=== PATIENT | male | born 1955 | race Caucasian/White ===

== ENCOUNTER 2019-11-24 08:23 | Outpatient (CLI) | payer MEDICARE ==
--- NOTE | 2019-11-24 09:53 | ULT ---
ULTRASOUND RENAL BILATERAL: HISTORY: Renal stone. COMPARISON: CT 10/08/2019. FINDINGS: Real-time, giron scale, and color evaluation of the kidneys and urinary bladder was performed. The prevoid urinary bladder volume is 432 mL and the postvoid volume is 87 mL. The right kidney fady ures 10.5 x 5.4 x 4.9 cm without mass, hydronephrosis, or abnormal calcifications. The left kidney m easures 10.2 x 5.7 x 4.7 cm without mass, hydronephrosis, or abnormal calcifications. There is an 8 mm cyst in the inferior pole left kidney, a parapelvic cyst. IMPRESSION: 1. No residual right-sided hydronephrosis. No evidence for obstructive uropathy. 2. Increased postvoid residual of 87 mL. POS: [facility]
== END 2019-11-24 08:24 | disposition home or self-care (01) ==
LOC: MADULT 08:23
PROVIDERS: ATTEND Urology
DX: N20.1 Calculus of ureter (principal); N13.30 Unspecified hydronephrosis
CPT/HCPCS: 76770

== ENCOUNTER 2020-12-27 14:28 | Emergency (ER) | payer MEDICARE ==
[2020-12-27] MEDS ORDERED: Aspirin Chewable 81 MG TAB ONE (14:58)
[2020-12-27] MEDS ORDERED: Nitroglycerin 0.4 MG TAB 1 EACH ONE ×2 (14:58→15:22)
[2020-12-27 15:10] LABS: #Basophils 0.2 thou/uL (0.0-0.2); #Eosinphils 0.3 thou/uL (0.0-0.7); #Lymphocytes 1.5 thou/uL (1.20-3.40); #Monocytes 0.8 thou/uL (0.11-0.59); #Neutrophils 7.9 thou/uL (1.40-6.50); %Basophils 1.7 % (0.0-1.0); %Eosinophils 2.5 % (0.0-10.0); %Lymphocytes 14.3 % (21.0-51.0); %Monocytes 7.4 % (0.0-10.0); %Neutrophils 74.1 % (42.0-75.0); Hemoglobin 14.5 g/dL (14.0-18.0); Mean Corpuscular HGB CONC 34.8 g/dL (32.0-36.0); Mean Platelet Volume 6.4 fL (7.4-10.4); Platelet Count 279 thou/uL (130-400); RBC Distribution Width 11.6 % (11.5-14.5); Red Blood Cell (RBC) Count 4.53 mill/uL (4.70-6.10); White Blood Cell (WBC) Count 10.6 thou/uL (4.8-10.8)
[2020-12-27 15:22] LABS: ALT (SGPT) 58 U/L (8-55); AST (SGOT) 35 U/L (5-34); Albumin 4.1 g/dL (3.4-4.8); Alkaline Phosphatase 89 U/L (40-110); Anion Gap 17 mmol/L (10-20); BUN (Urea Nitrogen) 14 mg/dL (8.4-25.7); Bilirubin, Total 0.8 mg/dL (0.2-1.2); Calc. Creatinine Clearance 0 mL/min (70-130); Calcium 9.8 mg/dL (7.8-10.44); Carbon Dioxide 23 mmol/L (23-31); Chloride 105 mmol/L (98-107); Globulin 3.3 g/dL (2.4-3.5); Glucose 126 mg/dL (80-115); Potassium 3.8 mmol/L (3.5-5.1); Protein, Total 7.4 g/dL (5.8-8.1); Sodium 141 mmol/L (136-145)
== END 2020-12-27 18:05 | disposition short-term general hospital (02) ==
LOC: MADERS 14:28
DX: R07.9 Chest pain, unspecified (principal); R55 Syncope and collapse; R11.0 Nausea; R06.02 Shortness of breath; K21.9 Gastro-esophageal reflux disease without esophagitis; I10 Essential (primary) hypertension; Z79.899 Other long term (current) drug therapy
CPT/HCPCS: 71045; 80053; 83880; 84484; 85025; 93005; 94760